=== PATIENT | male | born 1990 | race Caucasian/White ===

== ENCOUNTER 2022-10-09 01:10 | Emergency (ER) | payer MEDICAID ==
[~2022-10-09] VITALS: Ht 177.8 cm; Wt 84.0 kg
[2022-10-09 01:17] VITALS: BP 138/71
[2022-10-09] MEDS ORDERED: GABA-290 MT (01:29)
== END 2022-10-09 03:00 | disposition home or self-care (01) ==
LOC: ER 01:10
DX: Z76.0 Encounter for issue of repeat prescription (principal); Z88.4 Allergy status to anesthetic agent
CPT/HCPCS: 99281